=== PATIENT | female | born 1970 | race Caucasian/White ===

== ENCOUNTER 2016-04-01 06:34 | Day surgery (SDC) | payer OTHER ==
[2016-04-01] VITALS (7 sets, daily range): BP systolic 126–161; BP diastolic 60–84
[~2016-04-01] VITALS: Ht 170.2 cm; Wt 90.7 kg
[~2016-04-01 06:34] MED LIST: PROZ40CA PO; TOPA25TA10 PO; VITA100037 PO
[2016-04-01] MEDS ORDERED: LR 1,000 ML IV SCH ×3 (06:45→12:00)
[2016-04-01 07:03] LABS: MEAN CORPUSCULAR HEMOGLOBIN 30.3 pg (27.0-33.0); MEAN CORPUSCULAR HGB CONC 33.5 g/dl (32.0-36.5); MEAN CORPUSCULAR VOLUME 90.6 fl (80.0-96.0); RED CELL DISTRIBUTION WIDTH 11.9 % (11.5-14.5); WHITE BLOOD COUNT 8.6 K/mm3 (4.0-10.0)
[2016-04-01] MEDS ORDERED: METHYLENE BLUE 1% 10 ML VIAL (Q9968) As Ordered ONE ×2 (07:13→07:14)
[2016-04-01] MEDS ORDERED: SCOPOLAMINE 1.5 MG TRANSDERMAL As Ordered ONE (07:21)
[2016-04-01] MEDS ORDERED: SCOPOLAMINE 1.5 MG TRANSDERMAL TOP ONE (07:30)
[2016-04-01] MEDS ORDERED: LIDOCAINE 2% INJ 100 MG/5 ML SYRINGE As Ordered ONE (08:24)
[2016-04-01] MEDS ORDERED: MORPHINE 10 MG/ML 1ML VIAL As Ordered ONE (08:24)
[2016-04-01] MEDS ORDERED: dexameTHASONE 4 MG/ML 1ML VIAL (J1100) As Ordered ONE (08:24)
[2016-04-01] MEDS ORDERED: MIDAZOLAM INJ 2 MG/2 ML VIAL (J2250) As Ordered ONE (08:24)
[2016-04-01] MEDS ORDERED: PROPOFOL 200 MG/20 ML VIAL As Ordered ONE (08:24)
[2016-04-01] MEDS ORDERED: ROCURONIUM BROMIDE 50 MG/5 ML VIAL As Ordered ONE ×2 (08:24→08:41)
[2016-04-01] MEDS ORDERED: fentaNYL 100 MCG/2 ML INJECTION (J3010) As Ordered ONE (08:24)
[2016-04-01] MEDS ORDERED: ONDANSETRON 4MG/2ML VIAL (J2405) As Ordered ONE (08:24)
[2016-04-01] MEDS ORDERED: KETOROLAC 60 MG/2 ML VIAL (J1885) As Ordered ONE (08:24)
[2016-04-01] MEDS ORDERED: NEOSTIGMINE 1MG/ML 5 ML SYRINGE (J2710) As Ordered ONE (08:41)
[2016-04-01] MEDS ORDERED: ePHEDrine SULFATE 25 MG/5 ML(5MG/ML) SYRINGE As Ordered ONE (08:41)
[2016-04-01] MEDS ORDERED: GLYCOPYRROLATE INJ 0.2 MG/ML 2 ML VIAL As Ordered ONE (08:42)
[2016-04-01] MEDS ORDERED: FLUoxetine 20 MG CAP PO SCH ×2 (09:00→21:00)
[2016-04-01] MEDS ORDERED: MORPHINE PCA 1MG/ML 100ML CADD As Ordered ONE (11:34)
[2016-04-01] MEDS ORDERED: diphenhydrAMINE INJ 50MG/ML VIAL (J1200) IV PRN (12:00)
[2016-04-01] MEDS ORDERED: fentaNYL 100 MCG/2 ML INJECTION (J3010) IV PRN (12:00)
[2016-04-01] MEDS ORDERED: NALOXONE INJ 0.4 MG/1 ML VIAL (J2310) IV PRN (12:00)
[2016-04-01] MEDS ORDERED: MORPHINE 2 MG/ML 1ML SYRINGE IV PRN (12:00)
[2016-04-01] MEDS ORDERED: EPIDURAL/PCA KEYS XX PRN (12:00)
[2016-04-01] MEDS ORDERED: NALBUPHINE HCL 10 MG/ML AMP (J2300) IV PRN (12:00)
[2016-04-01] MEDS ORDERED: MORPHINE PCA 1MG/ML 100ML CADD IV PRN (12:00)
[2016-04-01] MEDS: LR 1,000 ML IV SCH ×2 (12:00→16:06)
[2016-04-01] MEDS ORDERED: IBUPROFEN 600 MG TAB PO PRN (12:00)
[2016-04-01] MEDS ORDERED: ONDANSETRON 4MG/2ML VIAL (J2405) IV PRN ×2 (12:00)
[2016-04-01] MEDS ORDERED: TOPIRAMATE (TopAMAX) 25 MG TAB PO SCH (21:00)
[2016-04-02] MEDS: LR 1,000 ML IV SCH (00:22)
[2016-04-02 00:23] VITALS: BP 126/74
[2016-04-02 05:00] VITALS: BP 120/65
--- NOTE | 2016-04-02 05:37 | RO ---
DATE OF PROCEDURE: 04/01/2016 PREPROCEDURE DIAGNOSES: Dysmenorrhea, menorrhagia, failed ablation, fibroids. POSTPROCEDURE DIAGNOSES Dysmenorrhea, menorrhagia, failed ablation, fibroids. PROCEDURE: Robotic assisted hysterectomy of uterus over 250 grams with removal of bilateral ovaries and tubes as well. SURGEON: Shira Anderson MD [employer] ADJUSTER: Jacqueline Henderson NP ANESTHESIA: General endotracheal anesthesia. DESCRIPTION OF PROCEDURE: Rasheeda was brought to the operating room where sufficient general endotracheal anesthesia was induced, and she was prepped, draped and positioned in the usual sterile fashion with the Rivera with the ability to backfill placed and the uterine manipulator placed. Attention was then turned to the abdomen where a transverse semilunar incision was made in the umbilicus. Sharp and blunt dissection were continued through subcutaneous tissue to the level of the rectus fascia, which was transversely incised and carefully dissected. #0 Vicryl retention sutures were placed in the fascia. The peritoneum was entered under direct visualization and using S retractors the peritoneal cavity was visualized and then the [place] cannula was placed into the peritoneal cavity under direct visualization in an open laparoscopic technique. CO2 insufflation was then begun. After adequate CO2 insufflation, the peritoneal cavity was visualized. There were normal shiny peritoneal surfaces throughout without excrescences, ascites, nor exudate. There were adhesions, especially left lower quadrant, and then some adhesions over the lower uterine segment and definitely some adhesions in the pelvis, especially on the left side, near the arch of the uterosacral, over the area where the ureter was running there is a kind of puckering appearance. It had the appearance of old endometriosis, although I did not see any powder galvan. This is more just scarring in that area that is photographed. We were able with visualization of the camera to place two left-sided and then one right-sided port for the robotic controls and the coding assistant port and then, patient was placed in Trendelenburg and the robot docked, and attention turned to the robot work all of which I did. Using the cold scissors, we dissected the intestines away from the left side infundibulopelvic ligament and this was carefully cauterized with the bipolar cautery. Care taken to avoid injury to the ureter and to the intestines. This was then transected and we continued our dissection through the broad ligament to the round ligament, which was also cauterized and transected. Then, turned our attention to the right side. Similar dissection was undertaken. Of course, there was not as much scar tissue there so we did not really have to worry about lysis of adhesions first. Then, having freed both ovaries, the round ligaments bilaterally, we backfilled the bladder, especially with the adhesions confirmed its location and then dissected the bladder flap anteriorly continuing our dissection through the broad and then continued the dissection posteriorly as well taking care to come across above the insertion of the uterosacrals. Plan to use that plane for our hysterectomy so as to maintain some distance from the ureters. Then, isolated and dissected out the uterine vasculature. She had recruited considerable additional vasculature especially on the right side for those fibroids. We cauterized this and had a nice blanching of the uterus showing evidence that we have the uterine vessels under control. We then rolled the uterine manipulator so as to project the cuff anteriorly. We used that for the anterior colpotomy and then after having completed the anterior colpotomy and having the peritoneal surfaces free posteriorly, we then dissected through the uterine vasculature and completed the colpotomy and the transection of the tissues above the vaginal cuff to complete the hysterectomy working around posteriorly, again taking care to avoid injury to the bowel and maintaining some distance from those scarring especially on the left side. Having freed the uterus with the attached ovaries and tubes it was delivered into the vagina. There was a pumping vessel on the patient's left side. V-Loc suture was used to over sew the angles and to close the cuff. This was done in two layer closure with angle stitch on the left side first and then closing that first layer of cuff taking care to get a good bite through the vaginal tissues, including the vaginal epithelium and then coming back with a second layer starting on the right side. Following this two layer closure, we had good hemostasis. The pelvis was irrigated and re-evaluated. There was no evidence of injury to bowel, ureter or bladder, and there was good hemostasis and the procedure was then ended. Estimated blood loss for procedure was about 200 mL. Fluid replacement was crystalloid. Complications: None. Specimen: Uterus, ovary and tubes. The uterus was weighed in the room. It weighed 259 grams. Condition and Disposition: Rasheeda tolerated the procedure well and was recovering in the recovery room in good condition. Edited: 04/02/2016 [id number] [facility]
[2016-04-02] MEDS ORDERED: NORCO, ANEXSIA 5/325MG TABLET (HYDROcodone/ACETAMINOPHEN) PO PRN (06:00)
[2016-04-02 07:28] LABS: MEAN CORPUSCULAR HEMOGLOBIN 30.3 pg (27.0-33.0); MEAN CORPUSCULAR HGB CONC 32.8 g/dl (32.0-36.5); MEAN CORPUSCULAR VOLUME 92.2 fl (80.0-96.0); RED CELL DISTRIBUTION WIDTH 12.7 % (11.5-14.5); WHITE BLOOD COUNT 12.7 K/mm3 (4.0-10.0)
[2016-04-02 08:00] VITALS: BP 119/72
[2016-04-02] MEDS ORDERED: IBUP600T26 PO (09:32)
[2016-04-02] MEDS ORDERED: NORC5TAB PO (09:32)
== END 2016-04-02 10:40 | disposition home or self-care (01) ==
LOC: M SDC 06:34 → M PED 11:59 → M SDC 04-02 10:40
PROVIDERS: ATTEND Obstetrics & Gynecology
DX: N94.6 Dysmenorrhea, unspecified (principal); N92.0 Excessive and frequent menstruation with regular cycle; N73.6 Female pelvic peritoneal adhesions (postinfective); N80.0 Endometriosis of uterus; N72 Inflammatory disease of cervix uteri; N83.291 Other ovarian cyst, right side; Z79.899 Other long term (current) drug therapy; F41.9 Anxiety disorder, unspecified
CPT/HCPCS: 36415; 58573; 85027; 86850; 86900; 86901; 88309; 96374; J0690; J1100; J1885; J2250; J2405; J2710; J3010

== ENCOUNTER → 2018-07-21 | Outpatient (REF) | payer OTHER ==
[~2018-07-21] MED LIST changes: +IBUP-1022 PO; +NORC1TAB7 PO; +TOPA1TAB PO; -TOPA25TA10 PO; -VITA100037 PO; +VITA100067 PO
[2018-07-21 14:25] LABS: BASO # 0.1 10^3/uL (0.0-0.2); BASO % 0.9 % (0.0-1.0); EOS % 0.3 % (0.0-3.0); HEMATOCRIT 42.6 % (36.0-47.0); HEMOGLOBIN 14.4 g/dl (12.0-15.5); LYMPH # 1.3 10^3/uL (1.5-4.5); LYMPH % 18.8 % (24.0-44.0); MEAN CORPUSCULAR HEMOGLOBIN 29.9 pg (27.0-33.0); MEAN CORPUSCULAR HGB CONC 33.8 g/dl (32.0-36.5); MEAN CORPUSCULAR VOLUME 88.4 fl (80.0-96.0); MONO # 0.3 10^3/uL (0.0-0.8); MONO % 4.5 % (0.0-5.0); NEUTROPHILS # 5.2 10^3/uL (1.8-7.7); NEUTROPHILS % 75.2 % (36.0-66.0); PLATELET COUNT, AUTOMATED 339 10^3/uL (150-450); RED BLOOD COUNT 4.82 10^6/uL (4.00-5.40); WHITE BLOOD COUNT 6.9 10^3/uL (4.0-10.0)
[2018-07-21 14:36] LABS: ALBUMIN 4.1 GM/DL (3.2-5.2); ALT/SGPT 47 U/L (12-78); BILIRUBIN,TOTAL 0.5 MG/DL (0.2-1.0); BLOOD UREA NITROGEN 20 MG/DL (7-18); CALCIUM LEVEL 9.2 MG/DL (8.5-10.1); CARBON DIOXIDE LEVEL 23 MEQ/L (21-32); CHLORIDE LEVEL 107 MEQ/L (98-107); CHOLESTEROL LEVEL 252 MG/DL (<200); CHOLESTEROL RISK RATIO 4.131 (<5); CREATININE FOR GFR 0.89 MG/DL (0.55-1.30); FREE T4 1.12 NG/DL (0.76-1.46); GLOMERULAR FILTRATION RATE > 60.0 (>51); GLUCOSE, FASTING 117 MG/DL (70-100); HDL CHOLESTEROL 61 MG/DL (>40); LDL CHOLESTEROL 167 MG/DL (<100); NON-HDL-C 191 MG/DL; POTASSIUM SERUM 3.9 MEQ/L (3.5-5.1); SODIUM LEVEL 139 MEQ/L (136-145); TOTAL PROTEIN 7.8 GM/DL (6.4-8.2); TRIGLYCERIDES LEVEL 118 MG/DL (<150)
== END ==
LOC: M LABDRAW1 11:27
PROVIDERS: ATTEND Physician Assistant Medical
DX: Z00.00 Encounter for general adult medical examination without abnormal findings (principal)

== ENCOUNTER → 2019-01-16 | Outpatient (REF) | payer OTHER ==
[2019-01-16 12:52] LABS: ALBUMIN 3.7 GM/DL (3.2-5.2); ALT/SGPT 57 U/L (12-78); BILIRUBIN,TOTAL 0.3 MG/DL (0.2-1.0); BLOOD UREA NITROGEN 14 MG/DL (7-18); CALCIUM LEVEL 9.2 MG/DL (8.5-10.1); CARBON DIOXIDE LEVEL 27 MEQ/L (21-32); CHLORIDE LEVEL 109 MEQ/L (98-107); CHOLESTEROL LEVEL 233 MG/DL (<200); CREATININE FOR GFR 0.88 MG/DL (0.55-1.30); GLOMERULAR FILTRATION RATE > 60.0 (>51); GLUCOSE, FASTING 115 MG/DL (70-100); HDL CHOLESTEROL 66 MG/DL (>40); LDL CHOLESTEROL 148 MG/DL (<100); NON-HDL-C 167 MG/DL; SODIUM LEVEL 143 MEQ/L (136-145); TRIGLYCERIDES LEVEL 97 MG/DL (<150)
[2019-01-16 13:41] LABS: HEMOGLOBIN A1c 6.4 %
== END ==
LOC: M LABDRAW1 09:22
PROVIDERS: ATTEND Family Medicine
DX: R73.01 Impaired fasting glucose (principal); E78.5 Hyperlipidemia, unspecified

== ENCOUNTER → 2019-08-01 | Outpatient (CLI) | payer OTHER ==
[~2019-08-01] MED LIST changes: +LIDO5DIS41 TD
[2019-08-01 12:32] LABS: ALBUMIN 3.6 GM/DL (3.2-5.2); ALT/SGPT 51 U/L (12-78); BILIRUBIN,TOTAL 0.2 MG/DL (0.2-1.0); BLOOD UREA NITROGEN 15 MG/DL (7-18); CALCIUM LEVEL 8.6 MG/DL (8.5-10.1); CARBON DIOXIDE LEVEL 28 MEQ/L (21-32); CHLORIDE LEVEL 108 MEQ/L (98-107); CREATININE FOR GFR 0.76 MG/DL (0.55-1.30); GLOMERULAR FILTRATION RATE > 60.0 (>51); GLUCOSE, FASTING 125 MG/DL (70-100); POTASSIUM SERUM 4.1 MEQ/L (3.5-5.1); SODIUM LEVEL 141 MEQ/L (136-145); TOTAL PROTEIN 7.2 GM/DL (6.4-8.2)
[2019-08-01 13:13] LABS: HEMOGLOBIN A1c 6.9 %
== END ==
LOC: M LAB 11:15
PROVIDERS: ATTEND Family Medicine
DX: R73.03 Prediabetes (principal)

== ENCOUNTER 2019-08-20 08:56 | Emergency (ER) | payer OTHER ==
[~2019-08-20] VITALS: Ht 167.6 cm; Wt 99.5 kg
[~2019-08-20 08:56] MED LIST changes: -LIDO5DIS41 TD
[2019-08-20 08:58] VITALS: BP 125/60
[2019-08-20] MEDS ORDERED: LIDOCAINE 5% (LIDODERM) PATCH TD ONE (09:30)
[2019-08-20] MEDS ORDERED: CYCLOBENZAPRINE 10MG TABLET PO ONE (09:30)
--- NOTE | 2019-08-20 09:30 | REP ---
Clinical: Trauma. Technique: Frontal view of the chest with four views of the left hemithorax. Findings: Frontal view of the chest demonstrates no acute cardiopulmonary process. Multiple views of the left hemithorax demonstrates no obvious acute rib fracture or pathology. Impression: Normal left rib series Electronically Signed by Devon Mccloud MD 08/20/2019 09:22 A
[2019-08-20] MEDS ORDERED: LIDO5DIS41 TD (09:33)
[2019-08-20] MEDS ORDERED: **NOTE PATIENT COMMENT** MISC XX SCH (21:00)
== END 2019-08-20 09:45 | disposition home or self-care (01) ==
LOC: M ED 08:56
DX: S20.20XA Contusion of thorax, unspecified, initial encounter (principal); W18.09XA Striking against other object with subsequent fall, initial encounter; Y93.01 Activity, walking, marching and hiking; Y92.89 Other specified places as the place of occurrence of the external cause; Z79.899 Other long term (current) drug therapy; F41.9 Anxiety disorder, unspecified; Y99.8 Other external cause status

== ENCOUNTER → 2020-02-27 | Outpatient (CLI) | payer OTHER ==
[~2020-02-27] MED LIST changes: +LIDO5DIS41 TD
[2020-02-27 12:57] LABS: ALBUMIN 3.8 GM/DL (3.2-5.2); ALT/SGPT 35 U/L (12-78); BILIRUBIN,TOTAL 0.3 MG/DL (0.2-1.0); BLOOD UREA NITROGEN 17 MG/DL (7-18); CARBON DIOXIDE LEVEL 28 MEQ/L (21-32); CHLORIDE LEVEL 109 MEQ/L (98-107); CHOLESTEROL LEVEL 241 MG/DL (<200); CHOLESTEROL RISK RATIO 3.887 (<5); FREE T4 0.99 NG/DL (0.76-1.46); GLOMERULAR FILTRATION RATE > 60.0 (>51); GLUCOSE, FASTING 117 MG/DL (70-100); HDL CHOLESTEROL 62 MG/DL (>40); LDL CHOLESTEROL 160 MG/DL (<100); NON-HDL-C 179 MG/DL; SODIUM LEVEL 141 MEQ/L (136-145); TRIGLYCERIDES LEVEL 96 MG/DL (<150)
[2020-02-27 13:07] LABS: HEMOGLOBIN A1c 6.2 %
[2020-02-27 13:08] LABS: MALB URINE SIEMENS 15.6 MG/L; MAU/CREAT RATIO 6.7 MCG/MG (0.0-30.0)
== END ==
LOC: M LAB 11:28
PROVIDERS: ATTEND Nurse Practitioner Family
DX: E11.9 Type 2 diabetes mellitus without complications (principal)

== ENCOUNTER → 2020-03-13 | Outpatient (CLI) | payer OTHER | LOC: M LABSMTC 13:38 | PROVIDERS: ATTEND Family Medicine | DX: Z20.828 Contact with and (suspected) exposure to other viral communicable diseases (principal) ==

== ENCOUNTER 2020-08-23 19:08 | Emergency (ER) | payer OTHER ==
[~2020-08-23] VITALS: Ht 167.6 cm; Wt 98.7 kg
[2020-08-23] MEDS ORDERED: NAPR375T4 PO (19:15)
[2020-08-23] MEDS ORDERED: NS 1,000 ML IV ONE (19:55)
[2020-08-23 20:18] LABS: BASO # 0.1 10^3/uL (0.0-0.2); BASO % 0.7 % (0.0-1.0); EOS # 0.3 10^3/uL (0.0-0.5); EOS % 2.1 % (0.0-3.0); HEMATOCRIT 39.2 % (36.0-47.0); HEMOGLOBIN 12.7 g/dl (12.0-15.5); LYMPH # 2.1 10^3/uL (1.5-5.0); MEAN CORPUSCULAR HEMOGLOBIN 29.3 pg (27.0-33.0); MEAN CORPUSCULAR HGB CONC 32.4 g/dl (32.0-36.5); MEAN CORPUSCULAR VOLUME 90.5 fl (80.0-96.0); MONO # 0.9 10^3/uL (0.0-0.8); MONO % 7.9 % (2.0-8.0); NEUTROPHILS # 8.4 10^3/uL (1.5-8.5); NEUTROPHILS % 70.9 % (36.0-66.0); PLATELET COUNT, AUTOMATED 316 10^3/uL (150-450); RED BLOOD COUNT 4.33 10^6/uL (4.00-5.40); WHITE BLOOD COUNT 11.9 10^3/uL (4.0-10.0)
--- NOTE | 2020-08-23 20:27 | REPVR ---
PROCEDURE INFORMATION: Exam: US Retroperitoneal Limited, Kidneys Exam date and time: 08/23/2020 8:17 PM Age: 50 years old Clinical indication: Abdominal pain; Flank; Left; Additional info: CVA pain L x 1 wk TECHNIQUE: Imaging protocol: Real-time ultrasound of the retroperitoneum with image documentation. Examination was focused on the kidneys. COMPARISON: No relevant prior studies available. FINDINGS: Right kidney: Right kidney measures 12.5 x 4.9 x 5.1 cm. Left kidney: Left kidney measures 12.9 x 5.5 x 6.9 cm. Bladder: Bladder. Unremarkable. Ureteral jets not demonstrated. Liver: The liver is diffusely echogenic relative to the right kidney, findings consistent with steatosis. Other findings: . IMPRESSION: 1. Normal kidneys. 2. Unremarkable bladder. Ureteral jets not demonstrated. 3. Hepatic steatosis. Electronically signed by: Shravan Parham On 08/23/2020 20:26:59 PM
[2020-08-23 20:41] LABS: ALT/SGPT 31 U/L (12-78); BILIRUBIN,DIRECT < 0.1 MG/DL (0.0-0.2); BILIRUBIN,TOTAL 0.2 MG/DL (0.2-1.0); LIPASE 80 U/L (73-393); TOTAL PROTEIN 7.1 GM/DL (6.4-8.2)
[2020-08-23] MEDS ORDERED: ISOVUE-370 76% 100ML VIAL As Ordered ONE (20:58)
--- NOTE | 2020-08-23 21:17 | REPVR ---
PROCEDURE INFORMATION: Exam: CT Abdomen And Pelvis With Contrast Exam date and time: 08/23/2020 9:03 PM Age: 50 years old Clinical indication: Other: Left flank pain, hematuria, renal US normal; Additional info: Left flank pain, hematuria, renal US normal, hyster TECHNIQUE: Imaging protocol: Computed tomography of the abdomen and pelvis with contrast. Radiation optimization: All CT scans at this facility use at least one of these dose optimization techniques: automated exposure control; mA and/or kV adjustment per patient size (includes targeted exams where dose is matched to clinical indication); or iterative reconstruction. Contrast material: ISOVUE 370; Contrast volume: 100 ml; Contrast route: INTRAVENOUS (IV); COMPARISON: RENAL US 08/23/2020 8:05 PM FINDINGS: Liver: There is a diffuse decrease in hepatic parenchymal density, consistent with steatosis. Gallbladder and bile ducts: The gallbladder is incompletely distended. This is most likely related to incomplete fasting. Clinical correlation to exclude gallbladder pathology suggested. Pancreas: Normal. No ductal dilation. Spleen: Normal. No splenomegaly. Adrenal glands: Normal. No mass. Kidneys and ureters: There is a 4.5 mm. obstructive ureteral calculus located distal left ureter resulting in [id number] proximal hydroureteronephrosis. There is mild periureteral and perinephric stranding. No urinoma demonstrated. Stomach and bowel: Unremarkable. No obstruction. No mucosal thickening. Appendix: No evidence of appendicitis. Intraperitoneal space: Unremarkable. No free air. No significant fluid collection. Vasculature: Unremarkable. No abdominal aortic aneurysm. Lymph nodes: Unremarkable. No enlarged lymph nodes. Urinary bladder: Unremarkable as visualized. Reproductive: Unremarkable as visualized. Bones/joints: Unremarkable. No acute fracture. Soft tissues: Unremarkable. IMPRESSION: 1. There is a diffuse decrease in hepatic parenchymal density, consistent with steatosis. 2. The gallbladder is incompletely distended. This is most likely related to incomplete fasting. Clinical correlation to exclude gallbladder pathology suggested. 3. 4.5 mm obstructive distal left ureteral calculus as described above. Electronically signed by: Shravan Parham On 08/23/2020 21:16:57 PM
[2020-08-23] MEDS ORDERED: KETOROLAC 30 MG/ML 1ML VIAL IV ONE (21:50)
[2020-08-23] MEDS ORDERED: NORCO 5/325MG TABLET (BULK FOR ED) PO ONE (21:50)
[2020-08-23] MEDS ORDERED: TAMSULOSIN 0.4 MG CAP PO ONE (21:50)
[2020-08-23] MEDS ORDERED: ONDANSETRON 4 MG ORAL DISINTEGRATING TAB PO ONE (21:50)
[2020-08-23] MEDS ORDERED: ONDA4TAB6 PO (21:53)
[2020-08-23] MEDS ORDERED: FLOM0.4C39 PO (21:53)
[2020-08-23 21:58] VITALS: BP 140/73
== END 2020-08-23 22:47 | disposition home or self-care (01) ==
LOC: M ED 19:08
DX: N20.1 Calculus of ureter (principal)
CPT/HCPCS: 74177; 76775; 80047; 80076; 81001; 83690; 85025; 96361; 96374; 99284; J1885; Q0162; Q9967

== ENCOUNTER → 2020-08-27 | Outpatient (CLI) | payer OTHER ==
[~2020-08-27] MED LIST changes: +FLOM0.4C39 PO; +NAPR375T4 PO; +ONDA4TAB6 PO
[2020-08-27 13:42] LABS: HEMOGLOBIN A1c 6.2 %
== END ==
LOC: M LAB 11:49
PROVIDERS: ATTEND Nurse Practitioner Family
DX: E11.9 Type 2 diabetes mellitus without complications (principal)

== ENCOUNTER → 2020-09-22 | Outpatient (REF) | payer OTHER ==
[2020-09-22 17:27] LABS: APPEARANCE, URINE HAZY (CLEAR); BACTERIA, URINE AUTO NEGATIVE (NEGATIVE); BILIRUBIN, URINE AUTO NEGATIVE (NEGATIVE); BLOOD, URINE BLOOD NEGATIVE (NEGATIVE); COLOR, URINE YELLOW (YELLOW); GLUCOSE, URINE (UA) AUTO NEGATIVE (NEGATIVE); KETONE, URINE AUTO NEGATIVE (NEGATIVE); LEUKOCYTE ESTERASE, URINE AUTO NEGATIVE (NEGATIVE); MUCUS, URINE SMALL (NEGATIVE); NITRITE, URINE AUTO NEGATIVE (NEGATIVE); PROTEIN, URINE AUTO NEGATIVE (NEGATIVE); RBC, URINE AUTO 0 /HPF (0-3); SPECIFIC GRAVITY URINE AUTO 1.021 (1.002-1.035); SQUAMOUS EPITHELIAL CELL UR AU 1 /HPF (0-6); UROBILINOGEN, URINE AUTO 0.2 mg/dL (0.0-2.0); WBC, URINE AUTO 1 /HPF (0-3)
== END ==
LOC: M SMT 17:02
PROVIDERS: ATTEND Nurse Practitioner Family
DX: N20.0 Calculus of kidney (principal)
CPT/HCPCS: 81001; 87086; G0463

== ENCOUNTER → 2020-10-02 | Outpatient (CLI) | payer OTHER | LOC: M RAD 11:07 | PROVIDERS: ATTEND Nurse Practitioner Family | DX: N20.0 Calculus of kidney (principal) ==

== ENCOUNTER → 2020-11-13 | Outpatient (CLI) | payer OTHER ==
[2020-11-15 12:07] LABS: ANTINUCLEAR ANTIBODIES DIRECT Negative (Negative)
== END ==
LOC: M PLALAB 13:43
PROVIDERS: ATTEND Psychiatry & Neurology Neurology
DX: R51.9 Headache, unspecified (principal)

== ENCOUNTER → 2021-03-04 | Outpatient (CLI) | payer OTHER ==
[2021-03-04 13:26] LABS: MALB URINE SIEMENS 14.8 MG/L; MAU/CREAT RATIO 8.6 MCG/MG (0.0-30.0)
[2021-03-04 13:44] LABS: HEMOGLOBIN A1c 6.6 %
[2021-03-04 13:47] LABS: ALBUMIN 3.7 GM/DL (3.2-5.2); ALT/SGPT 65 U/L (12-78); BILIRUBIN,TOTAL 0.3 MG/DL (0.2-1.0); BLOOD UREA NITROGEN 15 MG/DL (7-18); CALCIUM LEVEL 9.3 MG/DL (8.5-10.1); CARBON DIOXIDE LEVEL 29 MEQ/L (21-32); CHLORIDE LEVEL 103 MEQ/L (98-107); CHOLESTEROL LEVEL 230 MG/DL (<200); CHOLESTEROL RISK RATIO 4.035 (<5); GLOMERULAR FILTRATION RATE > 60.0 (>51); GLUCOSE, FASTING 133 MG/DL (70-100); HDL CHOLESTEROL 57 MG/DL (>40); LDL CHOLESTEROL 137 MG/DL (<100); NON-HDL-C 173 MG/DL; POTASSIUM SERUM 4.7 MEQ/L (3.5-5.1); SODIUM LEVEL 138 MEQ/L (136-145); TOTAL PROTEIN 7.3 GM/DL (6.4-8.2); TRIGLYCERIDES LEVEL 182 MG/DL (<150)
== END ==
LOC: M PLALAB 11:38
PROVIDERS: ATTEND Nurse Practitioner Family
DX: R73.03 Prediabetes (principal)

== ENCOUNTER → 2021-05-07 | Outpatient (CLI) | payer OTHER | LOC: M WHC 12:10 | PROVIDERS: ATTEND Nurse Practitioner Family | DX: Z12.31 Encounter for screening mammogram for malignant neoplasm of breast (principal); Z98.890 Other specified postprocedural states ==

== ENCOUNTER → 2021-08-31 | Outpatient (CLI) | payer OTHER ==
[2021-08-31 12:33] LABS: HEMOGLOBIN A1c 6.6 %
== END ==
LOC: M PLALAB 08:13
PROVIDERS: ATTEND Nurse Practitioner Family
DX: E11.9 Type 2 diabetes mellitus without complications (principal)

== ENCOUNTER → 2021-10-27 | Outpatient (CLI) | payer OTHER | LOC: M RAD 11:33 | PROVIDERS: ATTEND Internal Medicine Cardiovascular Disease | DX: I27.20 Pulmonary hypertension, unspecified (principal) ==

== ENCOUNTER → 2022-02-10 | Outpatient (CLI) | payer OTHER | LOC: M SLEEP HO 12-23 10:29 | PROVIDERS: ATTEND Internal Medicine Cardiovascular Disease | DX: R06.83 Snoring (principal); G47.30 Sleep apnea, unspecified ==

== ENCOUNTER → 2022-02-26 | Outpatient (CLI) | payer OTHER ==
[2022-02-26 14:42] LABS: ALBUMIN 3.8 G/DL (3.2-5.2); ALKALINE PHOSPHATASE 98 U/L (46-116); ALT/SGPT 119 U/L (7.0-40); AST/SGOT 78 U/L (<34); BILIRUBIN,TOTAL 0.4 MG/DL (0.3-1.2); BLOOD UREA NITROGEN 17 MG/DL (9-23); CALCIUM LEVEL 8.5 MG/DL (8.5-10.1); CARBON DIOXIDE LEVEL 26 MMOL/L (20-31); CHLORIDE LEVEL 103 MMOL/L (98-107); CHOLESTEROL LEVEL 209 MG/DL (<200); CREATININE FOR GFR 0.62 MG/DL (0.55-1.30); GLOMERULAR FILTRATION RATE > 60.0 (>51); GLUCOSE, FASTING 172 MG/DL (60-100); HDL CHOLESTEROL 57.9 MG/DL (>40); LDL CHOLESTEROL 138.1 MG/DL (<100); NON-HDL-C 151 MG/DL; POTASSIUM SERUM 4.5 MMOL/L (3.5-5.1); SODIUM LEVEL 138 MMOL/L (136-145); TOTAL PROTEIN 6.6 G/DL (5.7-8.2); TRIGLYCERIDES LEVEL 65 MG/DL (<150)
[2022-02-26 14:52] LABS: CREATININE, URINE 139.8 MG/DL
[2022-02-26 14:53] LABS: MAU/CREAT RATIO 3.5 MCG/MG (0.0-30.0)
== END ==
LOC: M PLALAB 09:07
PROVIDERS: ATTEND Nurse Practitioner Family
DX: E11.9 Type 2 diabetes mellitus without complications (principal)

== ENCOUNTER → 2022-05-28 | Outpatient (CLI) | payer OTHER ==
[2022-05-28 16:03] LABS: HEMOGLOBIN A1c 7.4 % (4.0-6.0)
== END ==
LOC: M PLALAB 11:13
PROVIDERS: ATTEND Nurse Practitioner Family
DX: E11.9 Type 2 diabetes mellitus without complications (principal)

== ENCOUNTER → 2022-09-03 | Outpatient (CLI) | payer OTHER | LOC: M PLALAB 10:40 | PROVIDERS: ATTEND Nurse Practitioner Family | DX: E11.9 Type 2 diabetes mellitus without complications (principal) ==

== ENCOUNTER → 2022-09-10 | Outpatient (REF) | payer OTHER | LOC: M LAB REF 12:52 | PROVIDERS: ATTEND Nurse Practitioner Family | DX: R30.0 Dysuria (principal) ==

== ENCOUNTER → 2023-03-08 | Outpatient (CLI) | payer OTHER ==
[2023-03-08 15:17] LABS: CREATININE, URINE 235.4 MG/DL; MAU/CREAT RATIO 8.9 MCG/MG (0.0-30.0)
[2023-03-08 15:23] LABS: ALBUMIN 3.7 G/DL (3.2-5.2); ALKALINE PHOSPHATASE 88 U/L (46-116); ALT/SGPT 72 U/L (7.0-40); AST/SGOT 44 U/L (<34); BILIRUBIN,TOTAL 0.4 MG/DL (0.3-1.2); BLOOD UREA NITROGEN 15 MG/DL (9-23); CALCIUM LEVEL 9.2 MG/DL (8.5-10.1); CARBON DIOXIDE LEVEL 27 MMOL/L (20-31); CHLORIDE LEVEL 102 MMOL/L (98-107); CHOLESTEROL LEVEL 218 MG/DL (<200); CHOLESTEROL RISK RATIO 3.51 (<5); CREATININE FOR GFR 0.75 MG/DL (0.55-1.30); GLOMERULAR FILTRATION RATE > 60.0 (>51); GLUCOSE, FASTING 120 MG/DL (60-100); LDL CHOLESTEROL 127.6 MG/DL (<100); POTASSIUM SERUM 4.7 MMOL/L (3.5-5.1); SODIUM LEVEL 138 MMOL/L (136-145); TOTAL PROTEIN 6.9 G/DL (5.7-8.2); TRIGLYCERIDES LEVEL 142 MG/DL (<150)
[2023-03-08 15:24] LABS: HEMOGLOBIN A1c 6.6 % (4.0-6.0)
== END ==
LOC: M PLALAB 10:19
PROVIDERS: ATTEND Nurse Practitioner Family
DX: E11.9 Type 2 diabetes mellitus without complications (principal)

== ENCOUNTER → 2023-09-13 | Outpatient (CLI) | payer OTHER ==
[~2023-09-13] MED LIST changes: +ONDA-282 PO; -ONDA4TAB6 PO
[2023-09-13 14:19] LABS: HEMOGLOBIN A1c 5.9 % (4.0-6.0)
== END ==
LOC: M PLALAB 08:42
PROVIDERS: ATTEND Nurse Practitioner Family
DX: E11.9 Type 2 diabetes mellitus without complications (principal)

== ENCOUNTER → 2023-10-03 | Outpatient (CLI) | payer OTHER | LOC: M WHC 14:53 | PROVIDERS: ATTEND Nurse Practitioner Family | DX: Z12.31 Encounter for screening mammogram for malignant neoplasm of breast (principal) ==